=== PATIENT | male | born 1990 | race Caucasian/White ===

== ENCOUNTER 2017-02-07 04:18 | Emergency (ER) | payer OTHER ==
[~2017-02-07] VITALS: Ht 167.6 cm; Wt 79.4 kg
[2017-02-07 04:20] VITALS: BP 137/77; PULSE 85; RESP 20; TEMP 98.1; O2SAT 96
--- NOTE | 2017-02-07 04:20 | NUR ---
Patient to [facility] for evaluation.
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
--- NOTE | 2017-02-07 04:25 | NUR ---
ER at bedside examining patient.
--- NOTE | 2017-02-07 04:52 | NUR ---
Written and verbal consent obtained from patient for blood alcohol, name and verified by patient. Disinfected patient's skin with iodine that did not contain alcohol or other volatile organic compound. Collected the blood from the subject named by venipuncture, in the presence of Officer badge number [id number]. Used a sterile, dry hypodermic needle and dry vacuum blood collection. The dry vacuum blood collection was supplied by the officer named above. Withdrew a specimen of blood from right arm of the subject named above. Inverted the blood tube several times to ensure that the preservative and anticoagulant were thoroughly mixed in the blood specimen. I initialed the blood tube label for identification. The labeled blood tube was handed directly to the Officer named above. The blood tube stopper remained in place while I had possession of the blood tube. The Officer placed tube into envelope and sealed it in my presence. Envelope initialed by myself and Officer named above. Patient tolerated well, bandage applied, and bleeding controlled.
[2017-02-07 05:01] VITALS: BP 137/77; PULSE 85; RESP 20; TEMP 98.1; O2SAT 96
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
== END 2017-02-07 05:01 ==
LOC: SED 04:18
DX: Z02.89 Encounter for other administrative examinations (principal); S09.92XA Unspecified injury of nose, initial encounter; V89.2XXA Person injured in unspecified motor-vehicle accident, traffic, initial encounter; Y93.89 Activity, other specified; Y92.488 Other paved roadways as the place of occurrence of the external cause; Y99.8 Other external cause status
CPT/HCPCS: 99283